=== PATIENT | female | born 1985 | race Caucasian/White ===

== ENCOUNTER 2017-05-23 05:05 | Emergency (ER) | payer OTHER ==
--- NOTE | 2017-05-23 05:45 | ED Physician Documentation ---
PD HPI ABD PAIN - Stated complaint Stated Complaint: ABD PX,FEVER - Chief complaint Chief Complaint: Fever - History obtained from History obtained from: Patient - History of Present Illness Timing - onset: Enter time (23:00) Timing - duration: Hours Timing - details: Gradual onset, Constant, Waxing and waning Pain level now: 5 Quality: Sharp, Pain Location: RLQ Radiation: Right flank Improved by: Laying still Worsened by: Moving, Palpation Associated symptoms: Fever (took temperature at home, 101.2. 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 she has also had similar pains in the past associated with ovarian cysts as well as uterine fibroids) Recently seen: Not recently seen Review of Systems Constitutional: reports: Fever, Chills Cardiac: reports: Reviewed and negative Respiratory: reports: Reviewed and negative GI: reports: Abdominal Pain, Nausea. denies: Vomiting : reports: Frequency. denies: Dysuria PD PAST MEDICAL HISTORY - Past Medical History Past Medical History: Yes Musculoskeletal: Fibromyalgia Other Past Medical History: Uterine fibroid - Past Surgical History Past Surgical History: Yes - Present Medications Home Medications: Ambulatory Orders Medication Instructions Recorded Confirmed Prenatl Vit6/Iron/FA/B12/Ca/D3 05/23/17 [Mteryti Combo Pack] - Allergies Allergies/Adverse Reactions: Allergies Allergy/AdvReac Type Severity Reaction Status Date / Time codeine Allergy Respiratory Verified 05/23/17 05:12 Penicillins Allergy Unknown Verified 05/23/17 05:11 Tetracyclines Allergy Rash Verified 05/23/17 05:12 - Social History Does the pt smoke?: No Smoking Status: Never smoker Does the pt drink ETOH?: Yes Does the pt have substance abuse?: No - Immunizations Immunizations are current?: Yes - POLST Patient has POLST: No PD ED PE NORMAL - Vitals Vital signs reviewed: Yes - General General: Alert and oriented X 3, No acute distress, Well developed/nourished - HEENT HEENT: Moist mucous membranes - Cardiac Cardiac: RRR, No murmur - Respiratory Respiratory: No respiratory distress, Clear bilaterally - Abdomen Abdomen: Normal bowel sounds, Soft, Non distended PD ED PE EXPANDED - Abdomen Abdomen: Tender to palpation, RLQ, Other (mild tenderness to palpation RLQ without rebound or guarding) Results - Vitals Vitals: Vital Signs - 24 hr 05/23/17 05/23/17 05/23/17 05:13 05:44 07:20 Temperature 36.9 C 36.5 C Heart Rate 118 H 102 H Respiratory 18 16 14 Rate Blood Pressure 132/88 H 144/81 H O2 Saturation 98 99 Oxygen O2 Source Room air - Labs Labs: Laboratory Tests 05/23/17 05/23/17 05/23/17 05:42 06:20 06:20 WBC 8.8 RBC 5.05 Hgb 14.8 Hct 43.1 MCV 85.4 MCH 29.3 MCHC 34.3 RDW 14.1 Plt Count 178 MPV 8.3 Neut # 6.8 H Lymph # 1.3 L [place] # 0.6 Eos # 0.1 Baso # 0.0 Absolute Nucleated RBC 0.00 Nucleated RBC % 0.0 Sodium 136 Potassium 4.0 Chloride 102 Carbon Dioxide 23 Anion Gap 11.0 BUN 17 Creatinine 0.6 Estimated GFR (MDRD) 117 Glucose 107 H Calcium 9.3 Total Bilirubin 0.3 AST 33 ALT 42 Alkaline Phosphatase 64 Total Protein 8.0 Albumin 4.1 Globulin 3.9 Albumin/Globulin Ratio 1.1 Lipase 19 L Urine Color YELLOW Urine Clarity CLEAR Urine pH 6.0 Ur Specific [place] >=1.030 H Urine Protein TRACE Urine Glucose (UA) NEGATIVE Urine Ketones NEGATIVE Urine Occult Blood NEGATIVE Urine Nitrite NEGATIVE Urine Bilirubin NEGATIVE Urine Urobilinogen 0.2 (NORMAL) Ur Leukocyte Esterase NEGATIVE Ur Microscopic Review NOT INDICATED Urine Culture Comments NOT INDICATED Urine HCG, Qual NEGATIVE - Rads (name of study) CT A/P Radiology: Prelim report reviewed, See rad report PD MEDICAL DECISION MAKING - ED course Complexity details: reviewed results, re-evaluated patient, considered differential, d/w patient ED course: remained afebrile during ED stay, CT reveals right hemorrhagic ovarian cyst, and her testing is otherwise unremarkable. There does not appear to be an acute infectious process despite her report of measured fever at home FA[employer] (which resolved without antipyretic medication). She was also concerned about left breast focal redness and swelling x 2 months. With RN technical document writer in the room, I examined the left breast. There is a small area of erythema, approximately 1 cm diameter, without significant tenderness and no fluctuance. She reports this has been improving (decreasing in size and tenderness), and thus I suspect this is an incidental finding that would not benefit from antibiotics or specific emergent intervention. She has f/u arranged with neck band maker for the end of this coming week. Departure - Departure Disposition: 01 Home, Self Care Clinical Impression: Cyst of ovary Qualifiers: Laterality: right Qualified Code(s): N83.201 - Unspecified ovarian cyst, right side Condition: Good Instructions: ED Cyst Ovarian Follow-Up: KATELYNN Boo [Provider Group] Discharge Date/Time: 05/23/17 08:11
[2017-05-23 05:49] LABS: BILIRUBIN,URINE NEGATIVE (NEGATIVE)
[2017-05-23 05:53] LABS: HCG UR QUAL NEGATIVE; UA CHARGE (STRIP ONLY) YES; UR CULTURE IF IND NOT INDICATED
[2017-05-23 06:28] LABS: BASOPHILS % (AUTO) 0.3 %; EOSINOPHILS # (AUTO) 0.1 10^3/uL (0.0-0.7); EOSINOPHILS % (AUTO) 0.8 %; HCT - HEMATOCRIT 43.1 % (37.0-47.0); HGB - HEMOGLOBIN 14.8 g/dL (12.0-16.0); LYMPHOCYTES # (AUTO) 1.3 10^3/uL (1.5-3.5); MEAN CORPUSCULAR HEMOGLOBIN 29.3 pg (27.0-31.0); MEAN CORPUSCULAR HGB CONC 34.3 g/dL (32.0-36.0); MEAN CORPUSCULAR VOLUME 85.4 fL (81.0-99.0); MEAN PLATELET VOLUME 8.3 fL (7.9-10.8); MONOCYTES # (AUTO) 0.6 10^3/uL (0.0-1.0); NEUTROPHILS # (AUTO) 6.8 10^3/uL (1.5-6.6); NEUTROPHILS % (AUTO) 76.9 %; RED BLOOD COUNT 5.05 10^6/uL (4.20-5.40); RED CELL DISTRIBUTION WIDTH 14.1 % (12.0-15.0); UNCORRECTED WHITE BLOOD COUNT 8.8 x10^3/uL; WHITE BLOOD COUNT 8.8 x10^3/uL (4.8-10.8)
[2017-05-23] MEDS ORDERED: IOPAMIDOL-300 100 ML VIAL ONE (06:34)
[2017-05-23 06:41] LABS: ALBUMIN/GLOBULIN RATIO 1.1 (1.0-2.2); BILIRUBIN,TOTAL 0.3 mg/dL (0.2-1.0); CALCIUM 9.3 mg/dL (8.5-10.3); CREATININE 0.6 mg/dL (0.4-1.0)
[2017-05-23] MEDS ORDERED: IOPAMIDOL-300 100 ML VIAL IVP ONE (06:52)
--- NOTE | 2017-05-23 07:17 | CT Preliminary Report ---
Exam: CT Abdomen/Pelvis W/ IMPRESSION: 1. No acute inflammatory or obstructive process seen in the abdomen or pelvis. 2. Right ovary contains a 4.5 cm hemorrhagic-appearing ovarian cyst. No significant free fluid. ACR r ecommends 6-12 weeks follow-up pelvic ultrasound in a patient of this age unless clinically indicated sooner. 3. Fatty liver. [facility] SITE ID: [id number]
[2017-05-23 07:24] VITALS: BP 144/81
--- NOTE | 2017-05-23 07:24 | CT Report ---
EXAM: CT ABDOMEN AND PELVIS EXAM DATE: 05/23/2017 07:05 AM. CLINICAL HISTORY: Right lower quadrant pain. COMPARISONS: None. TECHNIQUE: Routine helical CT imaging was performed through the abdomen and pelvis. IV contrast: Yes . Enteric contrast: No . Reconstructions: Coronal and sagittal. In accordance with CT protocol optimization, one or more of the following dose reduction techniques w ere utilized for this exam: automated exposure control, adjustment of mA and/or KV based on patient s ize, or use of iterative reconstructive technique. FINDINGS: Lung Bases: Unremarkable. Liver: Fatty. No suspicious masses. Gallbladder/Bile Ducts: Unremarkable. Spleen: Unremarkable. Pancreas: Unremarkable. Adrenal Glands: Unremarkable. Kidneys: Unremarkable. No suspicious masses or hydronephrosis. Peritoneal Cavity/Bowel: No bowel obstruction or inflammatory process seen. No free air or significan t free fluid. No masses or adenopathy. The appendix is normal. No excessive stool burden. Pelvic Organs: Enlarged right ovary containing a 49 x 43 x 42 mm complex cyst containing layering int ernal debris, likely hemorrhagic. Possible adjacent small paraovarian cyst or dilated fallopian tube. No left adnexal masses. Uterus appears unremarkable. Vasculature: No aneurysms or other significant abnormality. Bones: No significant abnormality. Other: None. IMPRESSION: 1. No acute inflammatory or obstructive process seen in the abdomen or pelvis. 2. Right ovary contains a 4.5 cm hemorrhagic-appearing ovarian cyst. No significant free fluid. ACR r ecommends 6-12 weeks follow-up pelvic ultrasound in a patient of this age unless clinically indicated sooner. 3. Fatty liver. [facility] Referring Provider Line: [phone] SITE ID: [id number]
[2017-05-23] MEDS ORDERED: ACETAMINOPHEN 325 MG TABLET PO STA (07:53)
[2017-05-23] MEDS ORDERED: ACETAMINOPHEN 325 MG TABLET PO ONE (08:03)
== END 2017-05-23 08:11 | disposition home or self-care (01) ==
LOC: ED 05:05
DX: N83.201 Unspecified ovarian cyst, right side (principal)
CPT/HCPCS: 36415; 74177; 80053; 81003; 81025; 83690; 85025; 99283; 99284; A9270; Q9967; 81001; 87086

== ENCOUNTER 2017-10-09 12:41 | Emergency (ER) | payer OTHER ==
[2017-10-09 13:33] LABS: BILIRUBIN,URINE NEGATIVE (NEGATIVE); GLUCOSE, URINE (UA) NEGATIVE (NEGATIVE); KETONES,URINE (UA) NEGATIVE (NEGATIVE); LEUKOCYTE ESTERASE, URINE NEGATIVE (NEGATIVE); NITRITE,URINE NEGATIVE (NEGATIVE); OCCULT BLOOD,URINE NEGATIVE (NEGATIVE); PROTEIN,URINE NEGATIVE (NEGATIVE); UROBILINOGEN,URINE 0.2 (NORMAL) E.U./dL (NORMAL)
[2017-10-09 13:35] LABS: CLARITY,URINE CLEAR (CLEAR); HCG UR QUAL NEGATIVE
--- NOTE | 2017-10-09 13:55 | ED Physician Documentation ---
History of Present Illness - Stated complaint Stated Complaint: HEART PALPITATION/LIGHTHEAD - Chief complaint Chief Complaint: Cardiac - History obtained from History obtained from: Patient - Additonal information Additional information: The patient is a 31-year-old female who presents with palpitations that she describes as feeling like irregular heartbeat and fluttering that has been ongoing for the past 2 weeks. She denies any associated chest pain, shortness of breath, or cough. She reports mild nausea, without vomiting. She denies dysuria. Her last menstrual period was 3 weeks ago. She reports having occasional brief similar episodes in the past, but never lasting this long. She identified no particular exacerbating or alleviating factors. She does not smoke cigarettes. She drinks alcohol occasionally. Review of Systems Constitutional: denies: Fever, Fatigue Ears: denies: Tinnitus/ringing Nose: denies: Congestion Throat: denies: Sore throat Cardiac: reports: Palpitations. denies: Chest pain / pressure Respiratory: denies: Dyspnea, Cough GI: reports: Nausea (mild). denies: Abdominal Pain, Vomiting, Diarrhea : reports: LMP (3 weeks ago.). denies: Dysuria Skin: denies: Rash Musculoskeletal: denies: Back pain, Extremity swelling Neurologic: denies: Focal weakness, Numbness, Headache PD PAST MEDICAL HISTORY - Past Medical History Cardiovascular: None Respiratory: None Neuro: None Endocrine/Autoimmune: None Musculoskeletal: Fibromyalgia - Past Surgical History Past Surgical History: Yes - Present Medications Home Medications: Ambulatory Orders Medication Instructions Recorded Confirmed Prenatl Vit6/Iron/FA/B12/Ca/D3 05/23/17 [Mteryti Combo Pack] Omeprazole 20 mg PO DAILY #20 tablet. 10/09/17 - Allergies Allergies/Adverse Reactions: Allergies Allergy/AdvReac Type Severity Reaction Status Date / Time codeine Allergy Respiratory Verified 10/09/17 12:52 Penicillins Allergy Unknown Verified 10/09/17 12:52 Tetracyclines Allergy Rash Verified 10/09/17 12:52 - Social History Does the pt smoke?: No Smoking Status: Never smoker Does the pt drink ETOH?: Yes Does the pt have substance abuse?: No - Immunizations Immunizations are current?: Yes - POLST Patient has POLST: No PD ED PE NORMAL - Vitals Vital signs reviewed: Yes (normal) - General General: Alert and oriented X 3, Well developed/nourished - HEENT HEENT: Atraumatic, Moist mucous membranes, Pharynx benign - Neck Neck: Supple, no meningeal sign, No adenopathy, No JVD - Cardiac Cardiac: RRR, No murmur - Respiratory Respiratory: No respiratory distress, Clear bilaterally - Abdomen Abdomen: Soft, Non tender, No organomegaly - Back Back: No CVA TTP - Derm Derm: No rash - Extremities Extremities: No edema, No calf tenderness / cord - Neuro Neuro: Alert and oriented X 3, No motor deficit, No sensory deficit, Normal speech Results - Vitals Vitals: Vital Signs - 24 hr 10/09/17 10/09/17 10/09/17 12:45 13:11 15:12 Heart Rate 75 61 Respiratory 15 16 Rate Blood Pressure 120/65 105/62 Blood Pressure 133/62 H [Left] Blood Pressure 128/77 [Right] O2 Saturation 95 99 10/09/17 16:22 Heart Rate 68 Respiratory 18 Rate Blood Pressure 118/68 Blood Pressure [Left] Blood Pressure [Right] O2 Saturation 98 Oxygen O2 Source Room air - EKG (time done) 12:49 Rate: Rate (enter#) (73) Rhythm: NSR [place]: Normal Intervals: Normal MT QRS: Normal Ischemia: Normal ST segments Computer interpretation: Agree with computer - Labs Labs: Laboratory Tests 10/09/17 10/09/17 10/09/17 13:20 13:20 13:41 Sodium 136 Potassium 3.5 Chloride 103 Carbon Dioxide 24 Anion Gap 9.0 BUN 12 Creatinine 0.4 Estimated GFR (MDRD) 186 Glucose 90 Calcium 9.1 Urine Color YELLOW Urine Clarity CLEAR Urine pH 6.0 Ur Specific [place] 1.025 1.025 Urine Protein NEGATIVE Urine Glucose (UA) NEGATIVE Urine Ketones NEGATIVE Urine Occult Blood NEGATIVE Urine Nitrite NEGATIVE Urine Bilirubin NEGATIVE Urine Urobilinogen 0.2 (NORMAL) Ur Leukocyte Esterase NEGATIVE Ur Microscopic Review NOT INDICATED Urine Culture Comments NOT INDICATED Urine HCG, Qual NEGATIVE PD MEDICAL DECISION MAKING - ED course Complexity details: reviewed results, re-evaluated patient, considered differential, d/w patient ED course: The underlying cause of the patient's feeling of palpitations is uncertain at this time. Although she has occasional PVCs on the lunchroom monitor, she continues to report a feeling of palpitations even when the lunchroom monitor shows a steady normal sinus rhythm with a rate in the 60s, and a normal pulse. She reports exacerbation of her symptoms when leaning forward or lying supine. There is no electrocardiographic evidence to suggest pericarditis. Gastroesophageal reflux is considered a possible underlying etiology. GI cocktail was administered without significant change in the patient's symptoms. She has a past history of gastroesophageal reflux, and since that is a likely cause of the patient's underlying symptoms, she is being discharged with a prescription for omeprazole. I discussed with her the results of her workup, the importance of outpatient follow-up, as well as potentially worrisome signs or symptoms that should prompt reevaluation in the emergency department. Departure - Departure Disposition: 01 Home, Self Care Clinical Impression: Palpitations, PVCs (premature ventricular contractions) Condition: Stable Instructions: ED Palpitations Follow-Up: KATELYNN Boo [Provider Group] Prescriptions: Omeprazole 20 mg PO DAILY #20 tablet. Comments: Take omeprazole 20 mg daily as prescribed. Follow up with your primary physician within 1-2 weeks. Call to schedule an appointment. Return to the emergency department if you develop increasing palpitations, lightheadedness, shortness of breath, persistent vomiting, or otherwise worsening symptoms. Discharge Date/Time: 10/09/17 16:23
[2017-10-09 14:17] LABS: CALCIUM 9.1 mg/dL (8.5-10.3); CREATININE 0.4 mg/dL (0.4-1.0)
[2017-10-09] MEDS ORDERED: MAG HYDROX/AL HYDROX/SIMETH 30 ML UDC PO STA (14:34)
[2017-10-09] MEDS ORDERED: LIDOCAINE VISCOUS 2% 15 ML UDC MM STA (14:34)
[2017-10-09 16:23] VITALS: BP 118/68
== END 2017-10-09 16:23 | disposition home or self-care (01) ==
LOC: ED 12:41
DX: R00.2 Palpitations (principal); I49.3 Ventricular premature depolarization; K21.9 Gastro-esophageal reflux disease without esophagitis
CPT/HCPCS: 36415; 80048; 81003; 81025; 93005; 99283; 99284; A9270; 81001; 87086

== ENCOUNTER 2021-03-21 08:00 | Outpatient (CLI) | payer OTHER | END 2021-03-21 23:59 | disposition home or self-care (01) | LOC: LAB.N 08:00 | PROVIDERS: ATTEND Nurse Practitioner | DX: R05 Cough (principal); Z20.822 Contact with and (suspected) exposure to COVID-19 ==